=== PATIENT | female | born 1955 | race African-American/Black ===

== ENCOUNTER → 2017-10-01 | Outpatient (CLI) | payer MEDICARE, MEDICAID ==
[~2017-10-01] MED LIST: ALPR.25 PO; CLON1TAB PO; FOLI1 PO; LORTA5 PO; METHO500 PO; METO25CR PO; PROT40TA PO; XALA0.00 LEFT EYE; Z.0.WALKERFRONT
[2017-10-01 14:22] LABS: AUTOMATED NEUTROPHIL # 1.4 TH/MM3 (1.8-7.7); BASOPHIL % 1.2 % (0.0-2.0); EOSINOPHIL % 0.8 % (0.0-4.0); HEMATOCRIT 33.5 % (35.0-46.0); LYMPH % 39.7 % (9.0-44.0); LYMPHOCYTE # 1.4 TH/MM3 (1.0-4.8); MEAN CELL VOLUME 94.7 FL (80.0-100.0); MEAN CORPUSCULAR HGB CONC 32.7 % (32.0-36.0); MEAN PLATELET VOLUME 7.3 FL (7.0-11.0); MONO % 17.5 % (0.0-8.0); MONOCYTE # 0.6 TH/MM3 (0-0.9); NEUT % 40.8 % (16.0-70.0); PLATELET COUNT 210 TH/MM3 (150-450); RED BLOOD COUNT 3.53 MIL/MM3 (4.00-5.30); RED CELL DISTRIBUTION WIDTH 14.4 % (11.6-17.2); WHITE BLOOD COUNT 3.5 TH/MM3 (4.0-11.0)
== END ==
LOC: CLAB 13:59
PROVIDERS: ATTEND Ophthalmology
DX: Z01.810 Encounter for preprocedural cardiovascular examination (principal); H59.89 Other postprocedural complications and disorders of eye and adnexa, not elsewhere classified
CPT/HCPCS: 36415; 85025

== ENCOUNTER → 2017-10-02 | Outpatient (CLI) | payer MEDICARE, MEDICAID ==
--- NOTE | 2017-10-03 22:40 | EKG ---
Date Performed: 10/02/2017 Time Performed: 13:55:30 PTAGE: 62 years EKG: Sinus rhythm . Septal T wave changes are nonspecific Borderline ECG PREVIOUS TRACING : 08/04/2014 20.01 Since the previous tracing, no significant change noted DOCTOR: Brendon Holland Interpretating Date/Time 10/03/2017 22:39:26
== END ==
LOC: HCAV 13:43
PROVIDERS: ATTEND Ophthalmology
DX: Z01.810 Encounter for preprocedural cardiovascular examination (principal)
CPT/HCPCS: 93005